=== PATIENT | male | born 1950 | race Caucasian/White ===

== ENCOUNTER 2016-06-06 06:24 | Day surgery (SDC) | payer OTHER ==
[2016-06-03 16:11] LABS: BUN (BLOOD UREA NITROGEN) 16 MG/DL (6-23); CALCIUM, SERUM 8.7 MG/DL (8.5-10.4); CHLORIDE, SERUM 109 MMOL/L (96-112); CO2 (CARBON DIOXIDE) 27 MMOL/L (24-34); GFR AFRICAN AMERICAN 66 ML/MIN (>=60); GFR NON AFRICAN AMERICAN 57 ML/MIN (>=60); POTASSIUM, SERUM 4.2 MMOL/L (3.5-5.3); SODIUM, SERUM 142 MMOL/L (135-148)
[2016-06-03 16:12] LABS: GLUCOSE, SERUM 88 MG/DL (60-99)
[2016-06-03 16:13] LABS: HEMATOCRIT 44.7 % (40.0-51.0); HEMOGLOBIN 14.9 g/dL (13.6-17.8)
--- NOTE | ~2016-06-06 | OP ---
Record Of Operation [facility] [address] [place]. [address] NAME: CHAIM FOOTE : 50 STATUS : REG [facility] [place] PAT#: [id number] AGE: 65 ADM/REG DATE : 06/06/16 MR#: [id number] REPORT SERV DATE: 06/06/16 DICTATED BY: CARLITOS CROCKER DATE: 06/06/16 REPORT STATUS : Draft TRANSCRIBED BY: MODL DATE: 06/06/16 DATE OF PROCEDURE: 06/06/2016 PREOPERATIVE DIAGNOSIS: Multiple lipoma. POSTOPERATIVE DIAGNOSIS: Multiple lipoma. PROCEDURES: 1. Excision of three right lateral chest lipomas with primary closure. 2. Excision of two right thigh deep subcutaneous lipomas with primary closure. 3. Excision of two left lateral chest lipomas with primary closure. 4. Excision of three left thigh lipomas with primary closure. ANESTHESIA: General. SURGEON: Carlitos Crocker M.D. TAPE SEWING MACHINE OPERATOR: Khushboo. COMPLICATIONS: None. DRAINS: None. ESTIMATED BLOOD LOSS: 20 mL. FINDINGS: The patient was noted to have three right chest, two right thigh, two left chest, and three left-sided deep subcutaneous lipomas. They were closed primarily and closed with subcuticular stitches. OPERATIVE TECHNIQUE: The patient was brought to the operating room and placed on the table in supine position. He had preoperative IV antibiotics. He had sequential hose in place. He voided prior to procedure. He underwent general endotracheal anesthesia and was prepped and draped in a sterile fashion and a time-out was completed. Local anesthesia was instilled above all of the lesions. Transverse incisions were then made over all of the subcutaneous lesions individually and sequentially. The electrocautery was used to dissect through the subcutaneous tissues to the level of the lipomas, which were then excised using blunt dissection and electrocautery and excised completely. All ten lesions in the locations as described above were excised. The wounds were irrigated and noted to be hemostatic. The subcutaneous tissues were then reapproximated using a running subcuticular Monocryl suture. Dermabond was applied to all ten lesions. He tolerated the procedure well and was extubated and taken to the recovery room in stable condition. All sponge and needle counts were reported correct. /MODL Record Of Operation [facility] [address] [place]. [address] NAME: CHAIM FOOTE : 50 STATUS : REG [facility] [place] PAT#: [id number] AGE: 65 ADM/REG DATE : 06/06/16 MR#: [id number] REPORT SERV DATE: 06/06/16 DICTATED BY: CARLITOS CROCKER DATE: 06/06/16 REPORT STATUS : Draft TRANSCRIBED BY: [place] DATE: 06/06/16 Carlitos Crocker M.D. / [id number] CC: Orville Herrera KARISTEN R
[~2016-06-06 06:24] MED LIST: *DENIES; ALEVE220 MG PO
== END 2016-06-06 14:47 | disposition home or self-care (01) ==
LOC: SDC 06:24
PROVIDERS: Surgery
PROC: 0JBL0ZZ Excision of Right Upper Leg Subcutaneous Tissue and Fascia, Open Approach (ICD-10-PCS; 2016-06-06)
PROC: 0JB60ZZ Excision of Chest Subcutaneous Tissue and Fascia, Open Approach (ICD-10-PCS; principal; 2016-06-06 07:45)
DX: D17.1 Benign lipomatous neoplasm of skin and subcutaneous tissue of trunk (principal); K63.5 Polyp of colon; Z98.890 Other specified postprocedural states; Z90.49 Acquired absence of other specified parts of digestive tract
CPT/HCPCS: 80048; 85014; 85018; 88304; 93005; J0690; J2250; J2405; J3010